=== PATIENT | male | born 1980 | race Two or more races ===

== ENCOUNTER 2018-01-21 02:25 | Emergency (ER) | payer OTHER ==
[2018-01-21 02:45] VITALS: BP 120/75
[2018-01-21] MEDS ORDERED: AZITHROMYCIN 250 MG TAB PO ONE (04:58)
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
[2018-01-21] MEDS ORDERED: RALTEGRAVIR 400 MG TAB PO ONE (05:03)
[2018-01-21] MEDS ORDERED: EMTRICITABINE/TENOFOVIR 200MG/300MG TAB PO ONE (05:03)
== END 2018-01-21 05:47 | disposition home or self-care (01) ==
LOC: EEVIPCON 02:25
DX: T76.21XA Adult sexual abuse, suspected, initial encounter (principal)
CPT/HCPCS: J0696